=== PATIENT | male | born 1990 | race African-American/Black ===

== ENCOUNTER 2017-10-11 22:10 | Emergency (ER) | payer SELFPAY ==
[~2017-10-11] VITALS: Ht 172.7 cm; Wt 128.0 kg
[2017-10-11] MEDS ORDERED: IBUPROFEN 600MG TABLET PO STA (22:43)
[2017-10-11] MEDS ORDERED: MAGNESIUM/ALUMINUM HYDROXIDE/SIMETHICONE 30ML UDC PO ONE (22:45)
[2017-10-11] MEDS ORDERED: VISCOUS LIDOCAINE 2% 15 ML UDC PO ONE (22:45)
[2017-10-11 23:33] LABS: BASOPHILS % 0.5 % (0.0-2.0); EOSINOPHILS % 1.4 % (0.0-5.0); HEMATOCRIT. 41.2 % (42.0-52.0); HEMOGLOBIN. 13.6 g/dL (14.0-18.0); LYMPHOCYTES % 42.2 % (20.0-50.0); MEAN CORPUSCULAR HEMOGLOBIN 26.9 pg (28.0-32.0); MEAN CORPUSCULAR VOLUME 81.7 fL (80.0-94.0); MEAN PLATELET VOLUME 8.9 fl (7.4-10.4); MONOCYTES % 8.2 % (2.0-8.0); NEUTROPHILS % 47.7 % (40.0-76.0); PLATELET 272 x1000/uL (130-400); RED BLOOD CELL COUNT 5.05 mill/uL (4.7-6.1); RED CELL DISTRIBUTION WIDTH 14.4 % (11.6-14.6)
[2017-10-11 23:38] LABS: CHLORIDE 103 mEq/L (98-107)
[2017-10-11 23:41] LABS: D-DIMER 1.59 mg/L FEU (<0.50); INR 0.9; PROTHROMBIN TIME 9.8 sec (9.4-11.6)
[2017-10-12] MEDS ORDERED: IOHEXOL-350 100 ML BOTTLE ONE (06:40)
[2017-10-12 07:28] VITALS: BP 143/76
== END 2017-10-12 07:43 | disposition home or self-care (01) ==
LOC: ER 22:59 → CANBEDREQ 10-12 09:14
DX: R07.9 Chest pain, unspecified (principal); Z82.3 Family history of stroke
CPT/HCPCS: 36415; 71045; 71275; 80053; 83690; 85025; 85379; 85610; 93005; 99285; Q9967